=== PATIENT | male | born 1990 | race Caucasian/White ===

== ENCOUNTER 2017-10-23 12:03 | Emergency (ER) | payer SELFPAY ==
[~2017-10-23] VITALS: Ht 193 cm; Wt 108.9 kg
[~2017-10-23 12:03] MED LIST: AUGMENTIN 875-1 EACH PO; SUPPLEMENT PO
--- NOTE | 2017-10-23 15:35 | ED NECK/BACK PAIN COMPLAINT ---
History of Present Illness General Chief Complaint: Low Back Pain/Injury Stated Complaint: BACK PAIN X 1WEEK Source: patient, old records Exam Limitations: no limitations Vital Signs & Intake/Output Vital Signs & Intake/Output Vital Signs Date Time Temp Pulse Resp B/P B/P Pulse O2 O2 Flow FiO2 Mean Ox Delivery Rate 10/23 1536 97.8 63 20 148/88 96 Room Air 10/23 1233 97.0 43 16 146/84 97 Room Air Allergies Coded Allergies: NO KNOWN ALLERGIES (05/15/15) Reconcile Medications Amoxicillin/Potassium Clav (Augmentin 875-125 Tablet) 1 EACH TABLET 1 TAB PO BID PRN skin infection Cyclobenzaprine HCl 5 MG TABLET 1 TAB PO TIDPRN PRN PAIN Ibuprofen 800 MG TABLET 1 TAB PO TID PRN PAIN Methylprednisolone. (Medrol) 4 MG TAB.DS.PK 1 DP PO AD RADICULOPATHY 6 on day 1 then reduce by one tablet daily until gone Oxycodone HCl/Acetaminophen (Percocet 5-325 MG Tablet) 5 MG-325 MG TABLET 1 TAB PO BID PRN PAIN [Supplement] 1 DOSE PO DAILY SUPPLEMENT (Reported) Triage Note: PT HERE WITH C/O BACK AND HIP PAIN THAT STARTED LAST SUNDAY. PT STATES HE WAS LIFTING AT THIS GYM AND INJURED HIS BACK. PT STATES THIS IS THE FIRTS TIME HE IS BEING SEEN FOR HIS BACK. PT HAS BEEN TAKING IBUPOFEN AND ICE NOT HEAT FOR THE PAIN WITH LITTLE EFFECT. Triage Nurses Notes Reviewed? yes Onset: Abrupt Duration: week(s): (1), constant Timing: recent history Quality/Severity: moderate, sharpness Location: paraspinous muscles Radiation: buttocks Context: lifting Loss of Consciousness: no loss of consciousness Modifying Factors: movement, rest Associated Symptoms: DENIES HPI: 27 YEAR OLD MALE WITH NO PMHX PRESENTS TO THE ER C/O 1 WEEK HISTORY OF B/L LOWER BACK PAIN R>l RAD INTO R HIP AFTER DOING A DEADLIFT AT THE GYM. SYMPTOMS CAME ON IMMEDIATLEY AFTERWARD. NO FALL. NO URINARY OR BOWEL INCONTINENCE. NO ABD PAIN, NV/D. NO SADDLE ANESTHESIA. NO FEVER, CHILLS. HE HAS BEEN TAKING IBUPROFEN ICE AND HEAT WO AFFECT. NO HISTORY OF BACK PROBLEMS IN THE PAST. HE DENIES NOTING ANY BULGING SWELLING TO HIS ABDOMEN, GROIN, TESTICLES. NO BRUISING NOTED TO HIS BACK OR HIP. (Ramos Clement) Past History Travel History Traveled to [place] past 21 day No Medical History Any Pertinent Medical History? see below for history Neurological: NONE EENT: NONE Cardiovascular: NONE Respiratory: NONE Gastrointestinal: NONE Hepatic: NONE Renal: NONE Musculoskeletal: NONE Psychiatric: bipolar ETOH ABUSE Endocrine: NONE Blood Disorders: NONE Cancer(s): NONE FIELD APPLICATION ENGINEER/Reproductive: NONE Surgical History Surgical History: N Psychosocial History Who do you live with Other (see notes) What is your primary language Turkish Tobacco Use: Never used ETOH Use: denies use Illicit Drug Use: denies illicit drug use Family History Hx Contributory? No (Ramos Clement) Review of Systems Review of Systems Constitutional: Reports: see HPI. Eyes: Denies: no symptoms. Ears, Nose, Throat, Mouth: Denies: no symptoms. Respiratory: Denies: no symptoms. Cardiovascular: Denies: no symptoms. Gastrointestinal/Abdominal: Denies: no symptoms, abdominal pain, constipation, diarrhea, nausea, vomiting. Musculoskeletal: Reports: back pain, muscle pain, muscle stiffness. Denies: joint pain, joint swelling, neck pain. Skin: Denies: no symptoms. Neurological/Psychological: Denies: no symptoms. All Other Systems: Reviewed and Negative (Ramos Clement) Physical Exam Physical Exam General Appearance: well developed/nourished, no apparent distress, alert Head: atraumatic, normal appearance Eyes: Bilateral: PERRL, EOMI. Ears, Nose, Throat, Mouth: hearing grossly normal, moist mucous membrane Neck: normal inspection, supple, full range of motion Respiratory: normal breath sounds, no respiratory distress Gastrointestinal: normal bowel sounds, soft Back: decreased range of motion, muscle spasm, B/L PARALUMBAR TENDERNESS Extremities: non-tender, normal range of motion, straight leg raised (B/L SLR), NO EDEMA Straight Leg Raising: Right: Pain at ____ degrees. Left: Pain at ____ degrees. Sensory: Medial Le: L4R, L4L. Top of Foot: 2: L5R, L5L. Sole of Foot: 2: SIR, EVY. DTR: Patellar: 3: L4 Right, L4 Left. Neurologic/Psych: no motor/sensory deficits, awake, alert, oriented x 3, normal gait, normal mood/affect Skin: intact, normal color Core Measures CVA/TIA Diagnosis: No (Deana GLASER,Ramos) Progress Differential Diagnosis: cauda equina syn, herniated disc, myofascial strain, pyelo/UTI, sciatica, spinal cord inj, T/L spine injury, ureterolithiasis Plan of Care: Orders Procedure Date/time Status Durable Medical Equipment 10/23 1634 Active XRY-LUMBOSACRAL SPINE AP & LAT 10/23 1541 Active I D/W THE PT HIS XRAY RESULTS- INFO PROVIDED FOR F/U WITH PMD AN SPINE SURGEON Diagnostic Imaging: Viewed by Me: Radiology Read. Discussed w/RAD: Radiology Read. Radiology Impression: PATIENT: ALEXIS GALLAGHER PRESENT AGE: 27 PATIENT ACCOUNT NO: [id number] : 90 LOCATION: [facility] ORDERING PHYSICIAN: Ramos GLASER SERVICE DATE: 10/23/17 EXAM TYPE: RAD - XRY-LUMBOSACRAL SPINE AP & LAT EXAMINATION: XR LUMBOSACRAL SPINE CLINICAL INFORMATION: Low back pain status post lifting. COMPARISON: 06/17/2013 TECHNIQUE : 3 views of the lumbosacral spine FINDINGS: There are 5 nonrib-bearing lumbar type vertebral bodies. Vertebral body height is maintained. There is a minor lower lumbar levoconvex scoliosis, unchanged. There is mild intervertebral disc height loss at L5-S1 with 1 to 2 mm of anterolisthesis. No definitive spondylolysis, although there is some superimposition artifact at the L5 level. Otherwise intervertebral disc height and sagittal alignment are maintained. The SI joints are unremarkable. The bowel gas pattern is nonobstructive. IMPRESSION: Minor spondylosis at L5-S1 with 1 to 2 mm of anterolisthesis of L5 on S1. No definitive spondylolysis, although oblique views would be more sensitive in this regard. Minor levoconvex lumbar scoliosis. DICTATED BY: Sabrina Hayes MD DATE/ TIME DICTATED:10/23/171639 HEAD OF QUALITY:OLIVIA DATE/TIME TRANSCRIBED: 10/23/171639 CONFIDENTIAL, DO NOT COPY WITHOUT APPROPRIATE AUTHORIZATION. < Electronically signed in Other Vendor System> SIGNED BY: Sabrina Hayes MD 10/23/17 6135 (Ramos Clement) Departure Departure Disposition: HOME OR SELF CARE Condition: Stable Clinical Impression Primary Impression: Lumbar strain Referrals: Gorelick MD,Danika L. Patient Has No Primary Care Dr (PCP/Family) Parveen SCOTT,Susie Additional Instructions: REST, INTERCHANGE ICE AND HEAT. IBUPROFEN 800MG EVEYR 8 HOURS. FLEXERIL AND MEDROL DOSE SENTHIL DIRECTED. PERCOCET FOR BREAKTHROUGH PAIN- THIS IS A NARCOTIC AND HIGHLY ADDICTIVE. NO DRIVING OR DRINKING ALCOHOL WHILE TAKING. FOLLOW UP WITH PRIMARY CARE PHYSICIAN DR MCCARTHY AND SPINE PHYSICIAN DR HERRING IF SYMPTOMS PERSIST. Departure Forms: Customer Survey General Discharge Information Prescriptions: Current Visit Scripts Cyclobenzaprine HCl 1 TAB PO TIDPRN PRN PAIN #15 TAB Methylprednisolone. (Medrol) 1 DP PO AD #1 DP 6 on day 1 then reduce by one tablet daily until gone Oxycodone HCl/Acetaminophen (Percocet 5-325 MG Tablet) 1 TAB PO BID PRN PAIN #10 TAB Ibuprofen 1 TAB PO TID PRN PAIN #30 TAB (Ramos Clement) PA/SHOVE UP Co-Sign Statement Statement: ED Attending supervision documentation- [] I saw and evaluated the patient. I have also reviewed all the pertinent lab results and diagnostic results. I agree with the findings and the plan of care as documented in the PA's/SHOVE UP's documentation. [x] I have reviewed the ED Record and agree with the PA's/SHOVE UP's documentation. [] Additions or exceptions (if any) to the PAs/SHOVE UP's note and plan are summarized below: [] (Atilio Negro DO)
[2017-10-23 15:36] VITALS: BP 148/88
[2017-10-23] MEDS ORDERED: IBUPROFEN800 M1 PO (15:45)
[2017-10-23] MEDS ORDERED: MEDROL4 M2 PO (15:45)
[2017-10-23] MEDS ORDERED: PERCOCET 5-3251 EACH PO (15:45)
[2017-10-23] MEDS ORDERED: CYCLOBENZAPRINE5 M2 PO (15:45)
--- NOTE | 2017-10-23 16:47 | RADIOLOGY REPORT ---
EXAMINATION: XR LUMBOSACRAL SPINE CLINICAL INFORMATION: Low back pain status post lifting. COMPARISON: 06/17/2013 TECHNIQUE: 3 views of the lumbosacral spine FINDINGS: There are 5 nonrib-bearing lumbar type vertebral bodies. Vertebral body height is maintained. There is a minor lower lumbar levoconvex scoliosis, unchanged. There is mild intervertebral disc height loss at L5-S1 with 1 to 2 mm of anterolisthesis. No definitive spondylolysis, although there is some superimposition artifact at the L5 level. Otherwise intervertebral disc height and sagittal alignment are maintained. The SI joints are unremarkable. The bowel gas pattern is nonobstructive. IMPRESSION: Minor spondylosis at L5-S1 with 1 to 2 mm of anterolisthesis of L5 on S1. No definitive spondylolysis, although oblique views would be more sensitive in this regard. Minor levoconvex lumbar scoliosis.
== END 2017-10-23 17:07 ==
LOC: ERH 12:03
DX: S39.012A Strain of muscle, fascia and tendon of lower back, initial encounter (principal); X58.XXXA Exposure to other specified factors, initial encounter; Y92.39 Other specified sports and athletic area as the place of occurrence of the external cause; Y93.B9 Activity, other involving muscle strengthening exercises
CPT/HCPCS: 72100